=== PATIENT | male | born 1965 | race Caucasian/White ===

== ENCOUNTER 2020-08-31 11:38 | Inpatient (IN) | payer OTHER ==
[2020-08-31] VITALS (14 sets, daily range): BP systolic 88–146; BP diastolic 52–87
[~2020-08-31] VITALS: Ht 182.9 cm; Wt 90.3 kg
--- NOTE | 2020-08-31 11:38 | NUR ---
PT BIB RA 60 FROM DIALYSIS,LOW BP 1 HR INTO HIS DIALYSIS TREATMENT. PT IS AAOX3 NAURUAN SPEAKING ONLY, NOT IN RESPIRATORY DISTRESS, HOOKED TO FIVE PIECE EXPANSION MAKER HAND AND O2 AT 3 LPM VIA NC. KEPT RESTED AND COMFORTABLE. WILL CONTINUE TO MONITOR.
--- NOTE | 2020-08-31 11:46 | NUR ---
SEEN AND EXAMINED BY .
--- NOTE | 2020-08-31 11:50 | NUR ---
BLOOD DRAWN AND SENT TO LAB.
[2020-08-31] MEDS ORDERED: IV NS 0.9% 500 ML BAG IV ONE (12:00)
--- NOTE | 2020-08-31 12:15 | NUR ---
PT SISTER LM [phone]
[2020-08-31 12:21] LABS: BASOPHILS # (AUTO) 0.1 /CMM (0.0-0.2); BASOPHILS % (AUTO) 0.8 % (0.0-2.0); EOSINOPHILS % (AUTO) 1.4 % (0.0-6.0); HEMATOCRIT 34 % (39-51); LYMPHOCYTES # (AUTO) 0.8 /CMM (0.8-4.8); LYMPHOCYTES % (AUTO) 6.1 % (20.0-44.0); MEAN CORPUSCULAR HGB CONC 33 g/dl (31.0-36.0); MEAN CORPUSCULAR VOLUME 93 fL (80-96); MONOCYTES # (AUTO) 1.1 /CMM (0.1-1.30); NEUTROPHILS # (AUTO) 11.5 /CMM (1.8-8.9); NEUTROPHILS % (AUTO) 83.7 % (43.0-81.0); PLATELET COUNT (AUTO) 143 /CMM (150-450); RED BLOOD CELL COUNT(AUTO) 3.63 MIL/uL (4.5-6.0); WHITE BLOOD COUNT (AUTO) 13.7 K/uL (4.3-11.0)
--- NOTE | 2020-08-31 12:21 | NUR ---
TODDLER CAREGIVER AT BEDSIDE FOR XRAY.
[2020-08-31 12:33] LABS: ALANINE AMINOTRANSFERASE 8 U/L (12-78); ALBUMIN 2.3 g/dL (3.4-5.0); ALKALINE PHOSPHATASE 169 U/L (46-116); ASPARTATE AMINOTRANSFERASE 40 U/L (15-37); BILIRUBIN,DIRECT 2.6 mg/dL (0.0-0.2); BILIRUBIN,TOTAL 4.6 mg/dL (0.2-1.0); CALCIUM, SERUM 8.2 mg/dL (8.5-10.1); CARBON DIOXIDE 26 mmol/L (21-32); CHLORIDE 100 mmol/L (98-107); CREATININE 3.8 mg/dL (0.6-1.3); GLUCOSE 98 mg/dL (74-106); POTASSIUM 5.2 mmol/L (3.5-5.1); SODIUM SERUM 133 mmol/L (136-145); TOTAL PROTEIN, SERUM 5.9 g/dL (6.4-8.2); UREA NITROGEN, BLOOD 19 mg/dL (7-18)
[2020-08-31] MEDS ORDERED: ERGO500014 PO (12:41)
[2020-08-31] MEDS ORDERED: PYRI25TA3 PO (12:41)
[2020-08-31] MEDS ORDERED: RIFA550T PO (12:41)
[2020-08-31] MEDS ORDERED: THIA100T70 PO (12:41)
[2020-08-31] MEDS ORDERED: MIDO5TAB4 PO (12:41)
[2020-08-31] MEDS ORDERED: LOPE2CAP PO (12:41)
[2020-08-31] MEDS ORDERED: PROP20TA7 PO (12:41)
[2020-08-31] MEDS ORDERED: FOLI0.8T2 PO (12:41)
[2020-08-31] MEDS ORDERED: LACT10SO3 PO (12:41)
[2020-08-31] MEDS ORDERED: PANT40TA2 PO (12:42)
[2020-08-31] MEDS ORDERED: CIPR-263 PO (12:42)
--- NOTE | 2020-08-31 13:26 | NUR ---
CALLED PHARMACY FOR IV ANTIBIOTIC.
[2020-08-31] MEDS ORDERED: VANCOMYCIN 1 GM in IV D5W 250 ML IV ONE (13:30)
[2020-08-31] MEDS ORDERED: PIPERACILLIN /TAZOBACTAM 3.375 G in IV D5W 50 ML IV ONE (13:30)
--- NOTE | 2020-08-31 13:51 | NUR ---
ROOM 256 CALL FOR REPORT IN 45 MINUTES, RN NOT AVAILABLE YET.
--- NOTE | 2020-08-31 13:52 | NUR ---
SPOKED TO JB PHOTOGRAPHIC RESTORER. WILL CALL BACK FOR AUTH.
--- NOTE | 2020-08-31 14:52 | NUR ---
REPORT GIVEN TO RN ANYA FOR BRYSON.
[2020-08-31] MEDS ORDERED: HYDROCODONE/APAP 5/325MG TABLET PO PRN (15:00)
[2020-08-31] MEDS ORDERED: MAGNESIUM HYDROXIDE 30 ML UDC PO PRN (15:00)
[2020-08-31] MEDS ORDERED: ACETAMINOPHEN 325 MG TABLET PO PRN (15:00)
[2020-08-31] MEDS ORDERED: ONDANSETRON HCL/PF 4 MG/2 ML VIAL IVP PRN (15:00)
[2020-08-31] MEDS ORDERED: MAG HYDROX/AL HYDROX/SIMETH 30 ML UDC PO PRN (15:00)
[2020-08-31] MEDS ORDERED: VANCOMYCIN 500 MG in IV D5W 100 ML IV PRN (16:00)
[2020-08-31] MEDS: PROPRANOLOL HCL 10 MG TABLET PO SCH (17:00)
[2020-08-31] MEDS ORDERED: IV NS 0.9% 250 ML IV ONE (17:30)
[2020-08-31] MEDS: LACTULOSE 10 G/15 ML UDC (PYXIS) PO SCH (17:51)
[2020-08-31] MEDS: RIFAXIMIN 550 MG TABLET PO SCH (17:52)
[2020-08-31] MEDS: MIDODRINE HCL (5MG) 5 MG TABLET PO SCH (17:52)
--- NOTE | 2020-08-31 19:22 | NUR ---
PIG LEAD MELTER HELPER CLOSING NOTES Patient is alert and oriented. No c/o sob, breathing even and unlabored. Iv site to left ac 20 gauze noted and patent. Patient given 250 cc of normal saline bolus. No c/o pain or discomfort. Bed is in lowest and locked position. Call light with in reach.
--- NOTE | 2020-08-31 19:30 | NUR ---
RN NOTES RECEIVED PT IN BED, ALERT AND ORIENTED. ZIMBABWEAN SPEAKING. ON O2 VIA NC AT 3LPM. NO SIGNS OF DISTRESS NOTED. DENIES ANY SOB OR PAIN. SINUS TACH WITH HR OF 12O ON TELE MONITOR. LAC IV PATENT AND INTACT. WITH RIGHT CHEST PERMACATH, DRESSING CLEAN DRY AND INTACT. WITH MULTIPLE SKIN DISCOLORATIONS ON UPPER CHEST AREA AND ARM. WILL CONTINUE TO MONITOR. ALL SAFETY MEASURES IMPLEMENTED PER PROTOCOL. CALL LIGHT WITHIN REACH, BED LOCKED IN LOWEST POSITION. SIDE RAILS UP.
--- NOTE | 2020-08-31 20:39 | NUR ---
RN NOTES PT SISTER, JAMI AND FRIEND, HENNA AT BEDSIDE. PT SOUTH KOREAN SPEAKING, HENNA PRODUCT SUPPORT SALES REPRESENTATIVE. PT WANTS RESUSCITATION BUT DOES NOT WANT INTUBATION. VERIFIED 3X WITH OTHER RN, CARY. ASSISTED LIVING HOUSEKEEPER KRIS NOTIFIED, CHANGED CODE STATUS TO DNI. ORDER NOTED AND CARRIED OUT. CHARGE NURSE MADE AWARE.
--- NOTE | 2020-08-31 20:40 | NUR ---
JAMI (SISTER) [phone], HENNA (FRIEND/PRESCRIPTION CLERK) [phone]
[2020-08-31] MEDS ORDERED: HEPARIN SODIUM, PORCINE 5000 UNITS/1 ML VIAL SQ SCH (21:00)
[2020-08-31] MEDS: PIPERACILLIN /TAZOBACTAM 2.25 G in IV D5W 50 ML IV SCH (21:28)
--- NOTE | 2020-08-31 23:00 | NUR ---
RN NOTE TITRATED O2 DOWN TO 2L. NO SIGNS OF RESP DISTRESS NOTED. O2 SAT AT 98-100%
[2020-09-01] VITALS (22 sets, daily range): BP systolic 79–128; BP diastolic 49–79
[2020-09-01 04:56] LABS: BASOPHILS # (AUTO) 0.2 /CMM (0.0-0.2); BASOPHILS % (AUTO) 1.1 % (0.0-2.0); EOSINOPHILS % (AUTO) 3.2 % (0.0-6.0); HEMATOCRIT 32 % (39-51); HEMOGLOBIN 10.4 g/dL (13.5-17.5); LYMPHOCYTES # (AUTO) 1.1 /CMM (0.8-4.8); LYMPHOCYTES % (AUTO) 8.5 % (20.0-44.0); MEAN CORPUSCULAR HGB CONC 33 g/dl (31.0-36.0); MEAN CORPUSCULAR VOLUME 94 fL (80-96); MONOCYTES # (AUTO) 1.2 /CMM (0.1-1.30); NEUTROPHILS # (AUTO) 10.4 /CMM (1.8-8.9); NEUTROPHILS % (AUTO) 78.2 % (43.0-81.0); PLATELET COUNT (AUTO) 119 /CMM (150-450); RED BLOOD CELL COUNT(AUTO) 3.35 MIL/uL (4.5-6.0); WHITE BLOOD COUNT (AUTO) 13.3 K/uL (4.3-11.0)
[2020-09-01] MEDS: PIPERACILLIN /TAZOBACTAM 2.25 G in IV D5W 50 ML IV SCH ×3 (05:13→21:40)
[2020-09-01 05:23] LABS: ALBUMIN 2.5 g/dL (3.4-5.0); BILIRUBIN,DIRECT 3.4 mg/dL (0.0-0.2); BILIRUBIN,TOTAL 5.7 mg/dL (0.2-1.0); CALCIUM, SERUM 8.9 mg/dL (8.5-10.1); CREATININE 4.6 mg/dL (0.6-1.3); MAGNESIUM 1.9 mg/dL (1.8-2.4); PHOSPHORUS 4.3 mg/dL (2.5-4.9)
--- NOTE | 2020-09-01 06:45 | NUR ---
RN NOTE PT REMAIN IN BED. ABLE TO MAKE NEEDS KNOWN. NOT IN ANY DISTRESS. SINUS TACH ON ON TELE MONITOR WITH HR OF 111. DENIES ANY PAIN. PT TOLERATING O2 AT 2LPM. VS STABLE. CALL LIGHT WITHIN REACH AT ALL TIMES. NO ACUTE CHANGES NOTED. WILL ENDORSE TO NEXT SHIFT NURSE FOR BRYSON.
--- NOTE | 2020-09-01 06:48 | NUR ---
LACTIC ACID AT 3.1. TRENDING DOWN. NOTIFIED DOCK ATTENDANT SOLITARIO. NO ORDER MADE
--- NOTE | 2020-09-01 07:31 | NUR ---
icu specialist NOTES RECEIVED PT IN BED, ALERT AND ORIENTED. ON O2 VIA NC AT 2LPM. NO SIGNS OF DISTRESS NOTED. DENIES ANY SOB OR PAIN. SINUS TACH WITH HR OF 117 ON TELE MONITOR. LAC IV PATENT AND INTACT. WITH RIGHT CHEST PERMACATH, DRESSING CLEAN DRY AND INTACT. WITH MULTIPLE SKIN DISCOLORATIONS ON UPPER CHEST AREA AND ARM. WILL CONTINUE TO MONITOR. ALL SAFETY MEASURES IMPLEMENTED PER PROTOCOL. CALL LIGHT WITHIN REACH, BED LOCKED IN LOWEST POSITION. SIDE RAILS UP.
[2020-09-01] MEDS: PANTOPRAZOLE 40 MG TABLET.DR PO SCH (08:05)
[2020-09-01] MEDS: VIT B CMPLX 3/FA/VIT C/BIOTIN 1 TAB TABLET PO SCH (08:05)
[2020-09-01] MEDS: RIFAXIMIN 550 MG TABLET PO SCH ×2 (08:05→16:38)
[2020-09-01] MEDS: PYRIDOXINE HCL 50 MG TABLET PO SCH (08:05)
[2020-09-01] MEDS: MIDODRINE HCL (5MG) 5 MG TABLET PO SCH ×3 (08:05→16:38)
[2020-09-01] MEDS: THIAMINE HCL 100 MG TABLET PO SCH (08:05)
[2020-09-01] MEDS: PROPRANOLOL HCL 10 MG TABLET PO SCH ×2 (08:06→16:38)
[2020-09-01] MEDS: LACTULOSE 10 G/15 ML UDC (PYXIS) PO SCH ×3 (08:24→16:38)
--- NOTE | 2020-09-01 08:28 | NUR ---
WOUND CARE CONSULT: PT PRESENTS WITH RT UPPER CHEST SKIN TEAR, PRESENT ON ADMISSION. RECOMMENDATIONS MADE FOR SKIN PROTECTION AND WOUND CARE. DISCUSSED WITH NURSING STAFF. PT IS INDEPENDENT WITH BED MOBILITY AND IS CONTINENT AT THIS TIME. WILL SEE PRN. HERRON IN AGREEMENT WITH PLAN OF CARE. Addendum: 09/01/20 at 0829 by GAIL CORBETT WNDNU Amended: Links added. Addendum: 09/01/20 at 0830 by GAIL CORBETT WNDNU SKIN NOTED TO BE JAUNDICED.
--- NOTE | 2020-09-01 08:57 | NUR ---
PLATE MAKER ZINC NOTE SEEN BY DR MUNGUIA MISSILE PAD MECHANIC NOTIFIED THAT HR ST 120 BUT BP 106/75 OK T GIVE INDERAL
--- NOTE | 2020-09-01 09:44 | NUR ---
agricultural education teacher note spoke with dr hay notified that patient refused lactulose also asked about possible paracentesis stated that will check it out
[2020-09-01] MEDS ORDERED: PHYTONADIONE 5 MG TABLET PO ONE (10:30)
--- NOTE | 2020-09-01 11:11 | NUR ---
curriculum and instruction specialist note pt eval done able to sit at edge of bed with assistance
[2020-09-01] MEDS ORDERED: PHYTONADIONE INJ 10 MG/1 ML AMPUL SQ ONE (11:30)
--- NOTE | 2020-09-01 12:17 | NUR ---
horticulture superintendent note sister at bedside feeding patient
--- NOTE | 2020-09-01 12:30 | NUR ---
landscape horticulture instructor note 2d aviation technician aircraft at bedside ,unable to do echo stated that heart not visible ,will try latter on will f\u
--- NOTE | 2020-09-01 13:49 | NUR ---
PLASTERER HELPER NOTE ABLE TO MAKE BM X2 KEEP, CLEAN DRY , ALL NEEDS ATTENDED, WILL CONT TO MONITOR
--- NOTE | 2020-09-01 15:00 | NUR ---
design engineer agricultural equipment note all needs attended, call light within reach , turn reposition, will monitor
--- NOTE | 2020-09-01 16:15 | NUR ---
county agricultural agent note transferred patient room 118 bed 1,tele unit with stable condition by acls protocol
--- NOTE | 2020-09-01 16:30 | NUR ---
PRODUCT DEVELOPMENT ACTUARY NOTE RECEIVED PATIENT FROM ICU ALERT ORIENTED X3 , PLACE ON TELE MONITOR SR HR 76 , 2L NS NO SOB NOTED AT THIS TIME, LT AC HL INTACT RT CHEST PERMA CATH IN PLCEW WITH DRY DRESSING IN PLACE , BOTH LEGS WITH DVT PUMPS ,VS TAKEN , ALL NEEDS ATTENDED , CALL LIGHT WITHIN REACH , WILL CONT TO MONITOR
--- NOTE | 2020-09-01 18:24 | NUR ---
SENIOR ELECTRONICS TECHNICIAN NOTE PATIENT IN BED ,ALL NEEDS ATTENDED , NO SOB NOTED, STILL ABDOMEN IS DISTENDED, ABLE TO EAT DINNER SELF 25% WITH MIN ASSISTANCE, BED IN LOWEST AND LOCKED POSITION , CALL LIGHT WITHIN REACH , WILL CONT TO MONITOR CLOSELY
--- NOTE | 2020-09-01 19:45 | NUR ---
DIGITAL CAMPAIGN SPECIALIST OPENING NOTE PATIENT A/OX4; KITTITIAN SPEAKING. ON O2 2LPM VIA N/C; TOLERATING WELL WITH NO SOB. EXTERNAL MAINSPRING STRIP GAUGER READS SINUS JOSE AT LOW 60'S. NOTED WITH ABDOMINAL DISTENSION. LAC #20G; PATENT AND INTACT. RIGHT CHEST PERMACATH; PATENT AND INTACT. SAFETY MEASURES IN PLACE: BED IN LOWEST LOCKED POSITION, SIDERAILS UP X2, CALL LIGHT WITHIN EASY REACH, BED ALARMS ON. WILL CONTINUE PLAN OF CARE.
--- NOTE | 2020-09-01 20:30 | NUR ---
PATIENT SERVICES MANAGER NOTE PATIENT NOTED WITH BP 79/52 AND PULSE 80. ELEVATED PATIENT'S LEGS. PATIENT DENIES DIZZINESS. DR. FERREIRA ORDERED FOR NS 500ML IV BOLUS AND TO HOLD PROPRANOLOL. ORDERS CARRIED OUT AND ADMINISTERED NS. WILL CONTINUE TO ASSESS PATIENT
[2020-09-01] MEDS ORDERED: IV NS 0.9% 500 ML BAG IV ONE (21:00)
--- NOTE | 2020-09-01 22:00 | NUR ---
FRANCHISE BROKER NOTE PATIENT NOTED WITH BP 79/60 AFTER NS 500ML BOLUS ADMINISTERED. ELEVATED PATIENT'S LEGS. PATIENT DENIES DIZZINESS. DR. FERREIRA ORDERED FOR NS 250ML IV BOLUS AND TO HOLD PROPRANOLOL. ORDERS CARRIED OUT AND ADMINISTERED NS. WILL CONTINUE TO ASSESS PATIENT
[2020-09-01] MEDS ORDERED: IV NS 0.9% 250 ML IV ONE (22:30)
[2020-09-02] VITALS (61 sets, daily range): BP systolic 52–160; BP diastolic 15–122
[2020-09-02] MEDS: PIPERACILLIN /TAZOBACTAM 2.25 G in IV D5W 50 ML IV SCH ×3 (04:26→21:30)
--- NOTE | 2020-09-02 06:12 | NUR ---
DECORATING EQUIPMENT SETTER CLOSING NOTE PATIENT A/OX4; PARAGUAYAN SPEAKING. ON O2 2LPM VIA N/C; TOLERATING WELL WITH NO SOB. EXTERNAL ADMINISTRATIVE ASSISTANT COORDINATOR READS SINUS JOSE AT LOW 60'S. NOTED WITH ABDOMINAL DISTENSION. LAC #20G; PATENT AND INTACT. RIGHT CHEST PERMACATH; PATENT AND INTACT. SAFETY MEASURES IN PLACE: BED IN LOWEST LOCKED POSITION, SIDERAILS UP X2, CALL LIGHT WITHIN EASY REACH, BED ALARMS ON. WILL ENDORSE PLAN OF CARE TO ONCOMING MORNING RN
--- NOTE | 2020-09-02 06:29 | NUR ---
RUBBER TESTER NOTE - LACTIC ACID LAZARA FROM LAB REPORTED PATIENT'S CRITICAL LAB OF LACTIC ACID 2.8. LACTIC ACID IS TRENDING DOWN TOWARDS NORMAL LIMITS.
[2020-09-02 06:41] LABS: BASOPHILS # (AUTO) 0.1 /CMM (0.0-0.2); BASOPHILS % (AUTO) 0.9 % (0.0-2.0); HEMATOCRIT 34 % (39-51); LYMPHOCYTES # (AUTO) 1.2 /CMM (0.8-4.8); LYMPHOCYTES % (AUTO) 8.8 % (20.0-44.0); MEAN CORPUSCULAR HGB CONC 33 g/dl (31.0-36.0); MEAN CORPUSCULAR VOLUME 95 fL (80-96); NEUTROPHILS # (AUTO) 10.7 /CMM (1.8-8.9); NEUTROPHILS % (AUTO) 78.3 % (43.0-81.0); RED BLOOD CELL COUNT(AUTO) 3.55 MIL/uL (4.5-6.0); WHITE BLOOD COUNT (AUTO) 13.7 K/uL (4.3-11.0)
[2020-09-02 06:56] LABS: CALCIUM, SERUM 8.7 mg/dL (8.5-10.1); CARBON DIOXIDE 19 mmol/L (21-32); CHLORIDE 95 mmol/L (98-107); GLUCOSE 98 mg/dL (74-106); POTASSIUM 4.7 mmol/L (3.5-5.1); SODIUM SERUM 127 mmol/L (136-145); UREA NITROGEN, BLOOD 29 mg/dL (7-18)
--- NOTE | 2020-09-02 07:20 | NUR ---
RN OPENING NOTE PATIENT RECEIVED RESTING IN SEMI-FOWLERS POSITION. PATIENT A/OX4 SOUTH AFRICAN SPEAKING. PATIENT ON O2 THERAPY VIA NC AT 2 LPM TOLERATING WELL WITH NO SOB. EXTERNAL SENIOR UI UX DEVELOPER ON. NOTED WITH ABDOMINAL DISTENSION AND HYPOTENSION. LAC #20 PATENT AND INTACT. RIGHT UPPER CHEST PERMA CATH NOTED. SAFETY MEASURES IMPLEMENTED, BED LOCKED AND IN LOWEST POSITION, SIDE RAILS UP X2, CALL LIGHT WITHIN REACH, BED ALARM ON. WILL CONTINUE TO MONITOR AND PROVIDE CARE THROUGHOUT SHIFT.
[2020-09-02] MEDS: PROPRANOLOL HCL 10 MG TABLET PO SCH ×2 (08:53→17:00)
[2020-09-02] MEDS: PANTOPRAZOLE 40 MG TABLET.DR PO SCH (09:01)
[2020-09-02] MEDS: LACTULOSE 10 G/15 ML UDC (PYXIS) PO SCH ×3 (09:02→17:00)
[2020-09-02] MEDS: RIFAXIMIN 550 MG TABLET PO SCH ×2 (09:02→17:00)
[2020-09-02] MEDS: THIAMINE HCL 100 MG TABLET PO SCH (09:02)
[2020-09-02] MEDS: PYRIDOXINE HCL 50 MG TABLET PO SCH (09:02)
[2020-09-02] MEDS: VIT B CMPLX 3/FA/VIT C/BIOTIN 1 TAB TABLET PO SCH (09:02)
[2020-09-02] MEDS: MIDODRINE HCL (5MG) 5 MG TABLET PO SCH ×3 (09:02→17:00)
[2020-09-02] MEDS ORDERED: NOREPINEPHRINE 8 MG in IV NS 0.9% 242 ML IV PRN ×2 (09:30→10:00)
--- NOTE | 2020-09-02 09:45 | NUR ---
patient transferred to icu per md orders for hypotension. bedside report given to ingris
--- NOTE | 2020-09-02 10:15 | NUR ---
MANAGER SHIFT NOTES PATIENT TRANSFERRED FROM [place] DUE TO HYPOTENSION, STARTED ON LEVO 0.1 MCG/KG/MIN ON LFA #20, WILL TITRATE PER PROTOCOL, ON OXYGEN 2LPM VIA NC SATING @98%, NO SIGNS OF DISTRESS NOTED AT THIS TIME, NOTED WITH SKIN TEAR ON CHEST, NOTED WITH MINIMAL BLEEDING TOOK PICTURES AND FILED ON CHART. SAFETY MEASURES IN PLACE, BED IN LOWEST LOCKED POSITION WITH SIDE RAILS UP X2, CALL LIGHT WITHIN REACH, WILL CONTINUE TO MONITOR.
[2020-09-02 10:33] LABS: PLATELET COUNT (AUTO) 128 /CMM (150-450)
[2020-09-02] MEDS: NOREPINEPHRINE 32 MG in IV NS 0.9% 218 ML IV PRN ×2 (14:18→17:42)
--- NOTE | 2020-09-02 17:00 | NUR ---
AGRICULTURE LABORER NOTE DIALYSIS NURSE ON UNIT, CONSENT SIGNED, WILL START DIALYSIS AT BEDSIDE, VSS. WILL CONTINUE TO MONITOR.
--- NOTE | 2020-09-02 17:15 | NUR ---
CLINICAL RESEARCH MANAGER NOTES STOPPED DIALYSIS, PATIENT WAS UNRESPONSIVE FOR A FEW SECONDS, O2 SATURATION DROPPED, NON REBREATHER MASK WAS PUT ON, WILL CONTINUE TO MONITOR.
--- NOTE | 2020-09-02 17:30 | NUR ---
MEAT SMOKER NOTES PATIENT REFUSED NON REBREATHER MASK, NASAL CANULA WAS PUT ON SATING @ 95%, NOTED WITH NAUSEA AND VOMITING, REFUSED MEDICATION. WILL CONTINUE TO MONITOR.
--- NOTE | 2020-09-02 18:42 | NUR ---
LEHR ATTENDANT NOTES PATIENT IN BED RESTING COMFORTABLY IN MODERATE HIGH BACK REST. A/O X3, ON OXYGEN 2LPM VIA NC, SATING @99%, IV ACCESS ON LAC#20 WITH LEVO RUNNING @0.7MCG/KG/MIN, PATIENT DID NOT TOLERATE DIALYSIS TODAY, PER DR. SWARTZ WILL TRY AGAIN TOMORROW, HD SITE ON RIGHT CHEST PERMACATH. SAFETY MEASURES IN PLACE, BED IN LOWEST LOCKED POSITION WITH SIDE RAILS UP X2, CALL LIGHT WITHIN REACH, WILL ENDORSE TO CLOTHING SUPERVISOR NURSE FOR BRYSON.
--- NOTE | 2020-09-02 19:00 | NUR ---
Received patient awake,alert,only speaks Cymro(unable to thoroughly assess mentation/orientation,but able to follow simple commands in [place]an, speaks and responds in Cymro language.not in any respiratory distress ,O2 via NC 2 L/min. on Levophed drip for BP support(now @ 0.7 mcg/kg/min.) titrate to MAP 65 as ordered. +ascites,icteric sclera, jaundice skin. Denies ay pain.Closely monitor BP.Comfort care done,needs attended,gets a little uncooperative and non compliant at times,refuses being examined.
--- NOTE | 2020-09-02 21:00 | NUR ---
BP very labile, sudden drop in BP even without titrating down Levophed.Patient hypothermic as well,warm blankets applied.
--- NOTE | 2020-09-02 22:00 | NUR ---
PICC line insertion in progress by ANDRA Espinosa via BRENDEN approach.Consent signed by sister,patient was also made aware of the procedure.
--- NOTE | 2020-09-02 22:30 | NUR ---
Successfully inserted PICC line,placement also confirmed by X ray ,read by Lowell and states in good position may use PICC line . Levophed drip now infusing via right PICC line.
--- NOTE | 2020-09-02 23:00 | NUR ---
BP sustaining in the 70's systolic,Levophed drip max out .Called alarm installation technician MD to refer low BP ,will obtain new pressor order ( Neosynephrine).awaiting response.
[2020-09-03] VITALS (26 sets, daily range): BP systolic 52–97; BP diastolic 28–68
--- NOTE | 2020-09-03 | NUR ---
responded ,ordered to start on Neosynephrine drip
[2020-09-03] MEDS: NOREPINEPHRINE 32 MG in IV NS 0.9% 218 ML IV PRN ×2 (00:06→06:00)
[2020-09-03] MEDS ORDERED: PHENYLEPHRINE 10 MG/ML VIAL ONE ×2 (00:14→06:17)
--- NOTE | 2020-09-03 00:20 | NUR ---
Neosynephrine drip started.Patient remains awake ,alert despite BPS of 70's, will titrate Rony drip.Patient states he gets short of breath on his back,prefers turning to the right side.On increase to 3-4 L/min
[2020-09-03] MEDS: PHENYLEPHRINE 100 MG in IV NS 0.9% 240 ML IV PRN ×2 (00:22→06:24)
[2020-09-03] MEDS ORDERED: ALBUMIN 25% 12.5 GM/50 ML BOTTLE IV ONE (03:00)
--- NOTE | 2020-09-03 03:00 | NUR ---
BP still low in the 70'S even with Neosynephrine.Reading 's note ,here commends giving small NSS bolus or Albumin ,suggested it to ,she responded and ordered 1 dose Albumin.
--- NOTE | 2020-09-03 04:00 | NUR ---
BP still low,patient remains alert,with slight SOB but still saturating 94-95%..
[2020-09-03 04:28] LABS: BASOPHILS # (AUTO) 0.1 /CMM (0.0-0.2); BASOPHILS % (AUTO) 0.5 % (0.0-2.0); HEMATOCRIT 33 % (39-51); HEMOGLOBIN 10.5 g/dL (13.5-17.5); LYMPHOCYTES # (AUTO) 0.6 /CMM (0.8-4.8); LYMPHOCYTES % (AUTO) 4.3 % (20.0-44.0); MEAN CORPUSCULAR HGB CONC 32 g/dl (31.0-36.0); MEAN CORPUSCULAR VOLUME 95 fL (80-96); MONOCYTES # (AUTO) 0.8 /CMM (0.1-1.30); MONOCYTES % (AUTO) 5.5 % (2.0-12.0); NEUTROPHILS # (AUTO) 13.5 /CMM (1.8-8.9); NEUTROPHILS % (AUTO) 89.7 % (43.0-81.0); PLATELET COUNT (AUTO) 116 /CMM (150-450); RED BLOOD CELL COUNT(AUTO) 3.43 MIL/uL (4.5-6.0)
--- NOTE | 2020-09-03 05:00 | NUR ---
lab called for blood sugar=39, repeat lab draw ordered ,finger stick checked =28,called Tilaordered1 amp. D50 now.
[2020-09-03] MEDS: PIPERACILLIN /TAZOBACTAM 2.25 G in IV D5W 50 ML IV SCH (05:13)
[2020-09-03 05:40] LABS: CALCIUM, SERUM 9.3 mg/dL (8.5-10.1); CREATININE 5.5 mg/dL (0.6-1.3); POTASSIUM 4.9 mmol/L (3.5-5.1)
--- NOTE | 2020-09-03 05:45 | NUR ---
Repeat blood sugar =36,already treated with D50.
[2020-09-03] MEDS ORDERED: DEXTROSE 50%-WATER 50 ML DISP.SYRIN IVP ONE (06:00)
--- NOTE | 2020-09-03 06:00 | NUR ---
BP remains low, max dose Rony and Levophed drip,patient getting a little restless and uncooperative.Noted some spitting of blood.
--- NOTE | 2020-09-03 06:30 | NUR ---
Started vomiting copious amount of blood,called Dr. Tila quispe.Ordered to repeat STAT CBC and INR and to start Octreotide drip and Protonix drip.
--- NOTE | 2020-09-03 06:38 | NUR ---
Patient quickly deteriorated became unresponsive ,first bradied ,stopped breathing.CODE called.
--- NOTE | 2020-09-03 06:55 | NUR ---
Called CHRISTOPHERK,spoke to sister who was making decision, made her aware of the situation,she decided to terminate all efforts,the decision was witnessed by ICu charge nurse and me(we both spoke to the sister).
[2020-09-03] MEDS ORDERED: SODIUM BICARBONATE SYR 50 MEQ/50 ML DISP.SYRIN IV ONE (07:06)
[2020-09-03] MEDS ORDERED: FEE EMEERGENCY 1 MIN EA MC ONE (07:06)
[2020-09-03] MEDS ORDERED: EPINEPHRINE (1:10,000) SYRINGE 1 MG/10 ML DISP.SYRIN IVP ONE (07:06)
[2020-09-03] MEDS ORDERED: ERGOCALCIFEROL (VITAMIN D 2) 50,000 UNIT CAPSULE PO SCH (15:30)
== END 2020-09-03 06:56 | DRG 720 ==
LOC: ER 11:49 → ICU 14:15 → TELE1 09-01 16:41 → ICU 09-02 09:36
PROVIDERS: ADMIT Nurse Practitioner Family; ATTEND Family Medicine
PROC: 02HV33Z Insertion of Infusion Device into Superior Vena Cava, Percutaneous Approach (ICD-10-PCS; 2020-09-02)
PROC: B548ZZA Ultrasonography of Superior Vena Cava, Guidance (ICD-10-PCS; 2020-09-02)
PROC: 5A1D70Z Performance of Urinary Filtration, Intermittent, Less than 6 Hours Per Day (ICD-10-PCS; 2020-09-02)
PROC: 5A2204Z Restoration of Cardiac Rhythm, Single (ICD-10-PCS; principal; 2020-09-03)
PROC: 0BH18EZ Insertion of Endotracheal Airway into Trachea, Via Natural or Artificial Opening Endoscopic (ICD-10-PCS; 2020-09-03)
DX: A41.9 Sepsis, unspecified organism (principal); I21.A1 Myocardial infarction type 2; K76.7 Hepatorenal syndrome; R65.21 Severe sepsis with septic shock; J90 Pleural effusion, not elsewhere classified; E44.0 Moderate protein-calorie malnutrition; K92.0 Hematemesis; J18.9 Pneumonia, unspecified organism; D68.9 Coagulation defect, unspecified; E11.22 Type 2 diabetes mellitus with diabetic chronic kidney disease; D69.6 Thrombocytopenia, unspecified; E87.1 Hypo-osmolality and hyponatremia; E87.2 Acidosis; I12.0 Hypertensive chronic kidney disease with stage 5 chronic kidney disease or end stage renal disease; D63.8 Anemia in other chronic diseases classified elsewhere; E87.5 Hyperkalemia; Z99.2 Dependence on renal dialysis; Z87.891 Personal history of nicotine dependence; N18.6 End stage renal disease; Z79.899 Other long term (current) drug therapy; J98.11 Atelectasis; R18.8 Other ascites; K74.60 Unspecified cirrhosis of liver
CPT/HCPCS: 36415; 71045-TC; 76700-TC; 80048-TC; 80061-TC; 80076-TC; 80202-TC; 82533; 82962-TC; 83605-TC; 83735-TC; 84100-TC; 84484-TC; 85025-TC; 85610-TC; 85730-TC; 87040-TC; 87081-TC; 90935-TC; 97112-TC; 97530-TC; C1751; G0378; J0171; J2370; J2405; J2543; J3370; J3430; J3490; J7040; J7050; J7060; P9047